=== PATIENT | male | born 1980 | race Caucasian/White ===

== ENCOUNTER 2018-05-12 20:53 | Emergency (ER) | payer OTHER ==
[~2018-05-12] VITALS: Ht 190.5 cm; Wt 93.0 kg
[2018-05-12 21:07] VITALS: BP 132/87
== END 2018-05-12 22:04 | disposition admitted as inpatient to this hospital (09) ==
LOC: ERH 20:53
DX: S61.412A Laceration without foreign body of left hand, initial encounter (principal); W25.XXXA Contact with sharp glass, initial encounter